=== PATIENT | female | born 1995 ===

== ENCOUNTER 2021-10-25 21:37 | Emergency (ER) | payer SELFPAY ==
[2021-10-25 21:49] VITALS: BP 126/106
--- NOTE | 2021-10-26 02:02 | Emergency Department Report ---
ED General Adult HPI - General Chief complaint: Vaginal Bleeding Stated complaint: 10WEEKS PREG BLEEDING Time Seen by Provider: 10/26/21 00:31 Source: patient Mode of arrival: Ambulatory Limitations: No Limitations - History of Present Illness Initial comments: Patient 26-year-old female who is G2, patient is currently 10 weeks started vaginal bleeding 2 days ago. Patient seen previously this with [facility]NAGER for same advised was subchorionic hemorrhage. Patient states spotting increased over the past 2 days. Has been no fevers no chills no vaginal discharge no back pain no nausea no vomiting. Patient has visit in 1 week. Patient rates symptoms today as 4/10 and cramping bilateral lower abdomen. Patient is tolerating p.o. intake however with some nausea. - Related Data Allergies Allergy/AdvReac Type Severity Reaction Status Date / Time No Known Allergies Allergy Verified 10/25/21 21:49 ED Review of Systems ROS: Stated complaint: 10WEEKS PREG BLEEDING Other details as noted in HPI Constitutional: no symptoms reported. denies: chills, fever, malaise Eyes: denies: eye pain, eye discharge, vision change ENT: denies: ear pain, throat pain, congestion Respiratory: denies: cough, shortness of breath, wheezing Cardiovascular: denies: chest pain, palpitations Endocrine: no symptoms reported Gastrointestinal: abdominal pain, nausea, vomiting. denies: diarrhea, constipation, hematemesis, melena Genitourinary: other (Vaginal spotting ). denies: urgency, dysuria, frequency, hematuria, discharge Musculoskeletal: denies: back pain, joint swelling, arthralgia Skin: denies: rash, lesions Neurological: denies: headache, weakness, paresthesias, vertigo Psychiatric: denies: anxiety, depression Hematological/Lymphatic: denies: easy bleeding, easy bruising ED Past Medical Hx - Past Medical History Previous Medical History?: No - Surgical History Past Surgical History?: No - Social History Smoking Status: Never Smoker Substance Use Type: None ED Physical Exam - General Limitations: No Limitations General appearance: alert, in no apparent distress - Head Head exam: Present: atraumatic, normocephalic - Eye Eye exam: Present: EOMI Pupils: Present: normal accommodation - ENT ENT exam: Present: mucous membranes moist - Neck Neck exam: Present: normal inspection, full ROM. Absent: tenderness, meningismus, lymphadenopathy, thyromegaly - Respiratory Respiratory exam: Present: normal lung sounds bilaterally. Absent: respiratory distress, wheezes, rales, rhonchi, stridor, chest wall tenderness - Cardiovascular Cardiovascular Exam: Present: regular rate, normal rhythm, normal heart sounds. Absent: systolic murmur, diastolic murmur, rubs, gallop - GI/Abdominal GI/Abdominal exam: Present: soft, normal bowel sounds. Absent: distended, tenderness, guarding, rebound, rigid, bruit, hernia - Rectal Rectal exam: Present: deferred - External exam: Present: other (deferred ) - Extremities Exam Extremities exam: Present: normal inspection, full ROM, normal capillary refill. Absent: tenderness, pedal edema, joint swelling, calf tenderness - Back Exam Back exam: Present: normal inspection, full ROM. Absent: CVA tenderness (R), CVA tenderness (L) - Neurological Exam Neurological exam: Present: alert, oriented X3, CN II-XII intact, normal gait, reflexes normal. Absent: motor sensory deficit - Expanded Neurological Exam Expanded Patient oriented to: Present: person, place, time Speech: Present: fluid speech Motor strength exam: RUE: 5, LUE: 5, RLE: 5, LLE: 5 Best Eye Response (Lon): (4) open spontaneously Best Motor Response (Leslie): (6) obeys commands Best Verbal Response (Leslie): (5) oriented Lon Total: 15 - Psychiatric Psychiatric exam: Present: normal affect, normal mood - Skin Skin exam: Present: warm, dry, intact, normal color. Absent: rash ED Course Vital Signs 10/25/21 21:45 Temperature 98.6 F Pulse Rate 75 Respiratory 18 Rate Blood Pressure 126/106 [Left] O2 Sat by Pulse 99 Oximetry ED Medical Decision Making - Lab Data Result diagrams: 10/26/21 01:41 Labs 10/26/21 10/26/21 10/26/21 01:41 01:41 01:41 WBC 10.8 RBC 4.30 Hgb 13.0 Hct 38.4 MCV 90 MCH 30 MCHC 34 RDW 12.5 L Plt Count 362 Lymph % (Auto) 35.4 H Reagan % (Auto) 8.0 H Eos % (Auto) 2.0 Baso % (Auto) 0.6 Lymph # (Auto) 3.8 Reagan # (Auto) 0.9 H Eos # (Auto) 0.2 Baso # (Auto) 0.1 Seg Neutrophils % 54.0 Seg Neutrophils # 5.8 HCG, Quant 97656 H Blood Type O NEGATIVE - Radiology Data Radiology results: report reviewed, image reviewed Ordering Physician: SUSAN HAINES NP Date of Service: 10/26/21 Procedure(s): US OB <= 14 weeks fetus Accession Number(s): [id number] cc: SUSAN HAINES NP OB ultrasound less than 14 weeks using endovaginal and transabdominal probe. INDICATION / CLINICAL INFORMATION: vag bleeding 8 weeks preg COMPARISON: None available. TECHNIQUE: Using a transcutaneous and endovaginal probe, multiple grayscale, color Doppler, and spectral Doppler images of the uterus and fetus were captured and stored. FINDINGS: Last menstrual period 08/26/2021 with clinical estimated gestational age of 8 weeks 5 days. Uterus measures 9.1 x 4.5 x 5.2 cm. Within the endometrial cavity, monozygotic monochorionic twin gestation is demonstrated without evidence of heart activity. 2 yolk sacs are present. No specific abnormality of gestational sac margin is demonstrated. Twin A demonstrates mean crown-rump length of 0.39 cm which correlates with an estimated gestational age of 6 weeks 0 days. EDC 06/21/2022. Twin B demonstrates mean crown-rump length of 0.25 cm which correlates with an estimated gestational age of 5 weeks 6 days. EDC 06/22/2022. The right ovary measures 1.98 x 1.01 x 3.11 cm. Right ovary demonstrates no significant abnormality. Left ovary measures 2.5 x 1.6 x 2.9 cm and is otherwise unremarkable. IMPRESSION: 1. Ultrasound findings compatible with monozygotic monochorionic twin gestation no heart activity. At the estimated gestational age as detailed this is somewhat concerning for demise, but may simply reflect early . Short-term ultrasound follow-up and/or surveillance of beta hCG is recommended. Signer Name: Shirley Ovalle II, MD Signed: 10/26/2021 2:16 AM Workstation Name: [id number] Transcribed By: KATHLEEN Dictated By: SHIRLEY OVALLE II, MD Electronically Authenticated By: SHIRLEY OVALLE II, MD Signed Date/Time: 10/26/21215 DD/ 2 TD/TT: - Medical Decision Making Ultrasound findings compatible with monozygotic monochorionic twin gestation no heart activity. At the estimated gestational age as detailed this is somewhat concerning for demise, but may simply reflect early . Short-term ultrasound follow-up and/or surveillance of beta hCG is recommended. Plan dc to self, follow up with OBGYN in 1-2 days, call today to confirm appointment. Return to emergency department should symptoms worsen. Patient verbalized agreement and understanding with discharge plan. Patient DC'd to home in stable condition at this time with adult family member. Family member. Critical care attestation.: If time is entered above; I have spent that time in minutes in the direct care of this critically ill patient, excluding procedure time. ED Disposition Clinical Impression: Vaginal bleeding during , Threatened miscarriage in early Qualifiers: Weeks of gestation: less than 8 weeks Qualified Code(s): Z3A.01 - Less than 8 weeks gestation of Twin Qualifiers: Multiple gestation type: monochorionic and monoamniotic Trimester: first trimester Qualified Code(s): O30.011 - Twin , monochorionic/monoamniotic, first trimester Disposition: 01 HOME / SELF CARE / HOMELESS Is pt being admited?: No Does the pt Need Aspirin: No Condition: Stable Instructions: Threatened Miscarriage, Vaginal Bleeding During , First Trimester, [id number] Additional Instructions: Take medications as prescribed, this is a twin , follow-up with DISTRIBUTION MANAGER call today for sooner appointment. There is a concern for threatened misc arriage return to emergency department should symptoms worsen. Pelvic rest please Referrals: ANJUM MUHAMMAD MD [Staff Physician] - 3-5 Days Forms: Work/School Release Form(ED) Time of Disposition: 03:52 Print Language: NEPALI
--- NOTE | 2021-10-26 02:20 | Ultrasound Report ---
OB ultrasound less than 14 weeks using endovaginal and transabdominal probe. INDICATION / CLINICAL INFORMATION: vag bleeding 8 weeks preg COMPARISON: None available. TECHNIQUE: Using a transcutaneous and endovaginal probe, multiple grayscale, color Doppler, and spect ral Doppler images of the uterus and fetus were captured and stored. FINDINGS: Last menstrual period 08/26/2021 with clinical estimated gestational age of 8 weeks 5 days. Uterus measures 9.1 x 4.5 x 5.2 cm. Within the endometrial cavity, monozygotic monochorionic twin gestation is demonstrated without evide nce of heart activity. 2 yolk sacs are present. No specific abnormality of gestational sac matthew in is demonstrated. Twin A demonstrates mean crown-rump length of 0.39 cm which correlates with an estimated gestational age of 6 weeks 0 days. EDC 06/21/2022. Twin B demonstrates mean crown-rump length of 0.25 cm which correlates with an estimated gestational age of 5 weeks 6 days. EDC 06/22/2022. The right ovary measures 1.98 x 1.01 x 3.11 cm. Right ovary demonstrates no significant abnormality. Left ovary measures 2.5 x 1.6 x 2.9 cm and is otherwise unremarkable. IMPRESSION: 1. Ultrasound findings compatible with monozygotic monochorionic twin gestation no heart activity. At the estimated gestational age as detailed this is somewhat concerning for demise, but may simp ly reflect early . Short-term ultrasound follow-up and/or surveillance of beta hCG is recomm ended. Signer Name: Danny Ovalle II, MD Signed: 10/26/2021 2:16 AM Workstation Name: [id number]
[2021-10-26 02:28] LABS: Basophils # (Auto) 0.1 K/mm3 (0.0-0.1); Basophils % (Auto) 0.6 % (0.0-1.8); Eosinophils # (Auto) 0.2 K/mm3 (0.0-0.4); Hematocrit 38.4 % (30.3-42.9); Lymphocytes # (Auto) 3.8 K/mm3 (1.2-5.4); Lymphocytes % (Auto) 35.4 % (13.4-35.0); Mean Corpuscular HGB Conc 34 % (30-34); Mean Corpuscular Volume 90 fl (79-97); Monocytes # (Auto) 0.9 K/mm3 (0.0-0.8); Platelet Count 362 K/mm3 (140-440); Red Cell Distribution Width 12.5 % (13.2-15.2)
--- NOTE | 2021-10-26 08:23 | Ultrasound Report ---
OB ultrasound less than 14 weeks endovaginal and transabdominal probe INDICATION / CLINICAL INFORMATION: vag bleeding 8 weeks preg COMPARISON: None available. TECHNIQUE: Using a transcutaneous and endovaginal probe, multiple grayscale, color Doppler, and spect ral Doppler images of the uterus and fetus were captured and stored. FINDINGS: Last menstrual period 08/26/2021 with clinical estimated gestational age of 8 weeks 5 days. Uterus measures 9.1 x 4.5 x 5.2 cm. Within the endometrial cavity, monozygotic monochorionic twin gestation is demonstrated without evide nce of heart activity. 2 yolk sacs are present. No specific abnormality of gestational sac matthew in is demonstrated. Twin A demonstrates mean crown-rump length of 0.39 cm which correlates with an estimated gestational age of 6 weeks 0 days. EDC 06/21/2022. Twin B demonstrates mean crown-rump length of 0.25 cm which correlates with an estimated gestational age of 5 weeks 6 days. EDC 06/22/2022. The right ovary measures 1.98 x 1.01 x 3.11 cm. Right ovary demonstrates no significant abnormality. Left ovary measures 2.5 x 1.6 x 2.9 cm and is otherwise unremarkable. IMPRESSION: 1. Ultrasound findings compatible with monozygotic monochorionic twin gestation no heart activity. At the estimated gestational age as detailed this is somewhat concerning for demise, but may simp ly reflect early . Short-term ultrasound follow-up and/or surveillance of beta hCG is recomm ended. Signer Name: Danny Ovalle II, MD Signed: 10/26/2021 2:15 AM Workstation Name: [id number]
== END 2021-10-26 04:13 | disposition home or self-care (01) ==
LOC: ED 21:37
DX: O20.9 Hemorrhage in early pregnancy, unspecified (principal); O20.0 Threatened abortion; Z37.2 Twins, both liveborn; Z3A.10 10 weeks gestation of pregnancy
CPT/HCPCS: 36415; 76801; 76802; 76817; 84702; 85025; 86900; 86901; 99284